=== PATIENT | female | born 1945 | race American Indian/Alaskan Native ===

== ENCOUNTER 2017-02-18 13:57 | Outpatient (CLI) | payer MEDICARE | END 2017-02-18 13:58 | disposition home or self-care (01) | LOC: CARD 13:57 | PROVIDERS: ATTEND Internal Medicine | DX: R07.9 Chest pain, unspecified (principal); R94.31 Abnormal electrocardiogram [ECG] [EKG] | CPT/HCPCS: 93005; 93010 ==

== ENCOUNTER 2021-03-19 12:54 | Outpatient (CLI) | payer MEDICARE ==
[2021-03-19 13:33] LABS: Hematocrit 32.2 % (30.3-42.9); Hemoglobin 10.9 gm/dl (10.1-14.3); Mean Corpuscular HGB Conc 34 % (30-34); Mean Corpuscular Volume 104 fl (79-97); Platelet Count 194 K/mm3 (140-440); Red Cell Distribution Width 12.9 % (13.2-15.2)
[2021-03-19 13:51] LABS: INR 1.06 (0.87-1.13)
[2021-03-19 13:55] LABS: Albumin 3.8 g/dL (3.9-5); Calcium 8.8 mg/dL (8.4-10.2)
[2021-03-19 15:25] LABS: Partial Thromboplastin Time 20.1 Sec. (24.2-36.6)
--- NOTE | 2021-03-20 10:24 | Electrocardiograph Report ---
[facility] Test Date: 2021-03-19 Test Time: 13:42:43 Pat Name: YOLANDA BOYER Department: Room: Gender: F Summer Intern: ONIEL : 1945 Requested By: LAUREL APPLE Order Number: [id number] Reading MD: Michael Teran Measurements Intervals [place] Rate: 66 P: 52 MD: 157 QRS: -20 QRSD: 90 T: 27 QT: 403 QTc: 423 Interpretive Statements Sinus rhythm Left ventricular hypertrophy No previous ECG available for comparison Electronically Signed On 03-20-2021 10:24:15 EDT by Michael Teran
== END 2021-03-19 12:55 | disposition home or self-care (01) ==
LOC: CARD 12:54
PROVIDERS: ATTEND Internal Medicine
DX: I51.7 Cardiomegaly (principal); R55 Syncope and collapse; R53.83 Other fatigue; R79.1 Abnormal coagulation profile; Z79.01 Long term (current) use of anticoagulants
CPT/HCPCS: 36415; 80053; 85027; 85610; 85730; 93005